=== PATIENT | female | born 1960 | race Caucasian/White ===

== ENCOUNTER → 2016-12-31 | Outpatient (CLI) | payer OTHER ==
--- NOTE | 2016-12-31 13:30 | US ---
EXAMINATION TYPE: US extremity nonvascular ltd RT DATE OF EXAM: 12/31/2016 1:11 PM COMPARISON: NONE CLINICAL HISTORY: M25.561 Pain in right knee posteriorly. Pain at right popliteal fossa TECHNOLOGIST IMPRESSION: No popliteal fossa cyst is seen. Patent right Popliteal Vein and Popliteal ARtery. No other mass is seen in popliteal fossa. Scanning of popliteal region shows no suspicious curvilinear fluid collection to suggest popliteal or Flores's cyst. Satisfactory flow is seen in popliteal artery and vein at this level. IMPRESSION: Unremarkable study as noted above. No suspicious finding is evident.
== END | disposition home or self-care (01) ==
LOC: RADUSWWP 12:53
PROVIDERS: ATTEND Family Medicine
DX: M25.561 Pain in right knee (principal)

== ENCOUNTER 2017-03-26 12:52 | Emergency (ER) | payer OTHER ==
[2017-03-26] MEDS ORDERED: HYDROmorphone 1 MG/ML 1 ML SYRINGE IVP STA (14:03)
[2017-03-26] MEDS ORDERED: SODIUM CHLORIDE 0.9% 1,000 ML IV ONE (14:03)
[2017-03-26] MEDS ORDERED: KETOROLAC 30 MG/ML 1 ML VIAL IVP STA (14:04)
--- NOTE | 2017-03-26 14:14 | ED ---
Abdominal Pain HPI - General Chief Complaint: Abdominal Pain Stated Complaint: R side pain Time Seen by Provider: 03/26/17 13:58 Source: patient Mode of arrival: ambulatory Limitations: no limitations - History of Present Illness Initial Comments: This is a 56-year-old female with a history of chronic back pain and neck pain presents emergency department for right flank pain. She states that it started suddenly this morning and woke her from sleep. She states that she has some associated nausea and vomiting and had one episode of diarrhea as well. She states it does radiate into her abdomen in the right lower area. No fevers or chills. No dysuria or hematuria. She states she's never had any pain in this area previously. No other complaints. - Related Data Home Medications Medication Instructions Recorded Confirmed ALPRAZolam [ALPRAZolam] 1 mg PO QID PRN 03/26/17 03/26/17 Amitriptyline HCl [Amitriptyline 150 mg PO HS 03/26/17 03/26/17 HCl] Butalb/APAP/Caff 50-325-40Mg 1 tab PO Q4H PRN 03/26/17 03/26/17 [Fioricet 50-325-40] Hydrocodone/Acetaminophen [[place] 1 tab PO QID PRN 03/26/17 03/26/17 10-325] Magnesium Oxide [Magnesium] 500 mg PO HS 03/26/17 03/26/17 Propranolol HCl [Inderal LA] 120 mg PO HS 03/26/17 03/26/17 Previous Rx's Medication Instructions Recorded Ciprofloxacin HCl [Cipro] 500 mg PO Q12HR #14 tablet 03/26/17 metroNIDAZOLE [Flagyl] 500 mg PO Q8HR #21 tab 03/26/17 Allergies Allergy/AdvReac Type Severity Reaction Status Date / Time morphine AdvReac Nausea & Verified 03/26/17 14:35 Vomiting Review of Systems ROS Statement: Those systems with pertinent positive or pertinent negative responses have been documented in the HPI. ROS Other: All systems not noted in ROS Statement are negative. Past Medical History Additional Past Medical History / Comment(s): chest lump History of Any Multi-Drug Resistant Organisms: None Reported Past Surgical History: Hysterectomy, Orthopedic Surgery, Tubal Ligation Additional Past Surgical History / Comment(s): neck Past Psychological History: No Psychological Hx Reported Smoking Status: Former smoker Past Alcohol Use History: None Reported Past Drug Use History: None Reported General Exam - General Exam Comments Initial Comments: Constitutional: Awake alert Appears comfortable Head: Normocephalic atraumatic Eyes: no conjunctival injection No scleral icterus EOMI Neck: No JVD Supple Heart: Regular rate rhythm normal S1-S2 no murmurs Lungs: Clear to auscultation bilaterally No wheezing No rales Abdomen: Soft nondistended mild tenderness in the right lower quadrant and suprapubic region, no CVA tenderness Extremities: Non edematous DP pulses intact Radial pulses intact Neuro: A&Ox3 No focal neurologic deficits Psych: Appropriate mood and affect Limitations: no limitations Course Vital Signs 03/26/17 03/26/17 12:59 16:00 Temperature 98.4 F 98.2 F Pulse Rate 93 62 Respiratory 20 16 Rate Blood Pressure 131/84 141/66 O2 Sat by Pulse 97 100 Oximetry Medical Decision Making - Medical Decision Making This 56-year-old female who presents emergency room for right flank pain. Computed tomography scan showed evidence for colitis. No evidence for kidney stone. No other intra-abdominal process. The patient is improved after medications. She did have a small amount of blood in her urine and the possibility of a recently passed stone is possible. I did start her on Cipro and Flagyl and told to follow-up with her primary doctor. She can return if she has worsening symptoms or questions were answered. - Lab Data Result diagrams: 03/26/17 14:20 03/26/17 14:20 Lab Results 03/26/17 03/26/17 03/26/17 Range/Units 14:20 14:20 15:36 WBC 8.7 (3.8-10.6) k/uL RBC 4.20 (3.80-5.40) m/uL Hgb 13.5 (11.4-16.0) gm/dL Hct 40.9 (34.0-46.0) % MCV 97.4 (80.0-100.0) fL MCH 32.1 (25.0-35.0) pg MCHC 33.0 (31.0-37.0) g/dL RDW 12.9 (11.5-15.5) % Plt Count 331 (150-450) k/uL Neutrophils % 75 % Lymphocytes % 19 % Monocytes % 3 % Eosinophils % 1 % Basophils % 1 % Neutrophils # 6.5 (1.3-7.7) k/uL Lymphocytes # 1.7 (1.0-4.8) k/uL Monocytes # 0.3 (0-1.0) k/uL Eosinophils # 0.0 (0-0.7) k/uL Basophils # 0.1 (0-0.2) k/uL Sodium 141 (137-145) mmol/L Potassium 4.6 (3.5-5.1) mmol/L Chloride 108 H (98-107) mmol/L Carbon Dioxide 25 (22-30) mmol/L Anion Gap 8 mmol/L BUN 16 (7-17) mg/dL Creatinine 0.72 (0.52-1.04) mg/dL Est GFR (MDRD) Af Amer >60 (>60 ml/min/1.73 sqM) Est GFR (MDRD) Non-Af >60 (>60 ml/min/1.73 sqM) Glucose 97 (74-99) mg/dL Calcium 9.8 (8.4-10.2) mg/dL Total Bilirubin 0.6 (0.2-1.3) mg/dL AST 32 (14-36) U/L ALT 39 (9-52) U/L Alkaline Phosphatase 103 (38-126) U/L Total Protein 7.3 (6.3-8.2) g/dL Albumin 4.5 (3.5-5.0) g/dL Amylase 60 (30-110) U/L Lipase 43 (23-300) U/L Urine Color Yellow Urine Appearance Clear (Clear) Urine pH 7.0 (5.0-8.0) Ur Specific [place] 1.010 (1.001-1.035) Urine Protein Negative (Negative) Urine Glucose (UA) Negative (Negative) Urine Ketones 1+ H (Negative) Urine Blood Small H (Negative) Urine Nitrite Negative (Negative) Urine Bilirubin Negative (Negative) Urine Urobilinogen <2.0 (<2.0) mg/dL Ur Leukocyte Esterase Negative (Negative) Urine RBC 16 H (0-5) /hpf Urine WBC <1 (0-5) /hpf Ur Squamous Epith Cells <1 (0-4) /hpf Urine Bacteria Rare H (None) /hpf Urine Mucus Rare H (None) /hpf Disposition Clinical Impression: Colitis Disposition: HOME SELF-CARE Condition: Stable Instructions: Colitis (ED) Prescriptions: Ciprofloxacin HCl [Cipro] 500 mg PO Q12HR #14 tablet metroNIDAZOLE [Flagyl] 500 mg PO Q8HR #21 tab Referrals: Kiersten Mcmillan III, MD [Primary Care Provider] - 1-2 days
[2017-03-26 14:57] LABS: Basophils # (A) 0.1 k/uL (0-0.2); Basophils % (A) 1 %; Eosinophils % (A) 1 %; HCT 40.9 % (34.0-46.0); HDW 1.96; HGB 13.5 gm/dL (11.4-16.0); Luc # (Auto) 0.14; Luc % (Auto) 2; Lymphocytes # (A) 1.7 k/uL (1.0-4.8); Lymphocytes % (A) 19 %; MCH 32.1 pg (25.0-35.0); MCV 97.4 fL (80.0-100.0); Mean Platelet Volume 7.2; Monocytes # (A) 0.3 k/uL (0-1.0); Monocytes % (A) 3 %; Neutrophils # (A) 6.5 k/uL (1.3-7.7); Neutrophils % (A) 75 %; RDW 12.9 % (11.5-15.5); WBC 8.7 k/uL (3.8-10.6); WBC (Perox) 8.67
[2017-03-26 15:11] LABS: ALT 39 U/L (9-52); AST 32 U/L (14-36); Alkaline Phosphatase 103 U/L (38-126); Amylase 60 U/L (30-110); Anion Gap 8 mmol/L; Blood Urea Nitrogen 16 mg/dL (7-17); Calcium 9.8 mg/dL (8.4-10.2); Carbon Dioxide 25 mmol/L (22-30); Chloride 108 mmol/L (98-107); Glucose 97 mg/dL (74-99); Non-African American GFR(MDRD) >60 (>60 ml/min/1.73 sqM); Potassium 4.6 mmol/L (3.5-5.1); Sodium 141 mmol/L (137-145); Total Bilirubin 0.6 mg/dL (0.2-1.3); Total Protein 7.3 g/dL (6.3-8.2)
--- NOTE | 2017-03-26 15:15 | CT ---
EXAMINATION TYPE: CT abdomen pelvis wo con DATE OF EXAM: 03/26/2017 COMPARISON: NONE HISTORY: Right sided flank pain CT DLP: 721 mGycm Automated exposure control for dose reduction was used. TECHNIQUE: Helical acquisition of images from the lung bases through the pelvis. FINDINGS: Lack of intravenous contrast could compromise sensitivity. LUNG BASES: Basilar atelectatic changes are present bilaterally. AORTA: No significant abnormality is appreciated. LIVER/GB: Incidental 5 mm hypodensity centrally within the posterior right lobe is of questionable cl inical significance. Gallbladder is within normal limits. PANCREAS: Suspect there may be a large posterior duodenal diverticulum extending posterior to the choudhury creas. SPLEEN: No significant abnormality is seen. ADRENALS: No significant abnormality is seen. KIDNEYS: Possible cortical cyst associated with lower pole the right kidney. Indeterminate hypodensit ies present. No nephrolithiasis on the right, no ureteral calcification present bilaterally. Punctate nonobstructive calculi are associated with the left kidney, there are at least 3 punctate calcificat ions present towards the upper pole REPRODUCTIVE ORGANS: No uterus is identified. Suspect ovaries present in the pelvis. URINARY BLADDER: No significant abnormality is seen. BOWEL: The appendix is normal. Difficult to exclude some colonic wall thickening. FREE AIR: No Free Air is visible. ASCITES: None visible. PELVIC ADENOPATHY: None visualized. RETROPERITONEAL ADENOPATHY: No Retroperitoneal Adenopathy visible. OSSEOUS STRUCTURES: Degenerative disc changes are present in the visualized spine. There is a spinal curvature. IMPRESSION: LEFT-SIDED NEPHROLITHIASIS IS NONOBSTRUCTIVE. NONCONTRAST EXAM. POSSIBLE LARGE DUODENAL DIVERTICULUM. DIFFICULT TO EXCLUDE AN UNDERLYING COLITIS. FOLLOW-UP INDICATED. POSTOP CHANGES. ADDITIONAL FINDI NGS ABOVE.
[2017-03-26 15:58] LABS: Appearance,Urine Clear (Clear); Bacteria,Urine Rare /hpf; Bilirubin,Urine Negative (Negative); Glucose,Urine (UA) Negative (Negative); Ketones,Urine 1+ (Negative); Leukocyte Esterase,Urine Negative (Negative); Mucus,Urine Rare /hpf; Nitrite,Urine Negative (Negative); Particle Count 1362; Protein,Urine Negative (Negative); RBC,Urine 16 /hpf (0-5); Squamous Epithelial Cell,Urine <1 /hpf (0-4); UA Billing (MACRO vs. MICRO) MICRO; Urobilinogen,Urine <2.0 mg/dL (<2.0); WBC,Urine <1 /hpf (0-5)
[2017-03-26 16:01] VITALS: BP 141/66; PULSE 62; RESP 16; TEMP 98.2
== END 2017-03-26 16:17 | disposition home or self-care (01) ==
LOC: EC 12:52
DX: K52.9 Noninfective gastroenteritis and colitis, unspecified (principal); R31.9 Hematuria, unspecified; Z87.891 Personal history of nicotine dependence; Z79.899 Other long term (current) drug therapy; Z88.5 Allergy status to narcotic agent
CPT/HCPCS: 36415; 80053; 82150; 83690; 85025; 81001; 74176; 99284; 96374; 96375; 96361; J1885; J1170

== ENCOUNTER → 2017-06-13 | Outpatient (CLI) | payer OTHER ==
--- NOTE | 2017-06-13 11:08 | XR ---
EXAMINATION TYPE: XR abdomen 1V DATE OF EXAM: 06/13/2017 COMPARISON: NONE HISTORY: Pain TECHNIQUE: Single supine KUB image of the abdomen is obtained FINDINGS: Small bowel demonstrates no evidence for dilatation or air fluid levels. Gas and fecal material is seen in non-distended colon. No convincing evidence for pneumoperitoneum. No unusual calcifications. Phlebolith left hemipelvis. The lung bases are clear. The osseous structures are intact. IMPRESSION: 1. Overall nonobstructive bowel gas pattern.
== END ==
LOC: RADXRMAIN 10:36
PROVIDERS: ATTEND Family Medicine
DX: N20.0 Calculus of kidney (principal)
CPT/HCPCS: 74000

== ENCOUNTER → 2017-09-10 | Outpatient (CLI) | payer OTHER ==
--- NOTE | 2017-09-10 16:22 | XR ---
Abdomen HISTORY: Pain, kidney calculus Frontal view of the abdomen submitted on 2 images and correlated to prior abdomen 06/13/2017, CT abdom en pelvis 03/26/2017 Calcification is overlying the right kidney measuring 14 mm. Large amount of retained fecal debris is noted. Probable vascular calcifications within the pelvis. Degenerative disc changes in the visualiz ed spine. Lung bases are clear. No obstruction or pneumoperitoneum. Distortion of the right ilium is stable. IMPRESSION: Right-sided nephrolithiasis.
== END | disposition home or self-care (01) ==
LOC: RADXRMAIN 14:23
PROVIDERS: ATTEND Urology
DX: N20.0 Calculus of kidney (principal)
CPT/HCPCS: 74000

== ENCOUNTER → 2017-09-17 | Outpatient (CLI) | payer OTHER ==
[2017-09-17 17:41] LABS: Basophils # (A) 0.1 k/uL (0-0.2); Basophils % (A) 2 %; CH 31.2; CHCM 32.1; Eosinophils # (A) 0.4 k/uL (0-0.7); Eosinophils % (A) 5 %; HCT 39.6 % (34.0-46.0); HGB 12.8 gm/dL (11.4-16.0); Luc # (Auto) 0.13; Luc % (Auto) 2; Lymphocytes # (A) 3.3 k/uL (1.0-4.8); Lymphocytes % (A) 41 %; MCH 31.4 pg (25.0-35.0); MCHC 32.3 g/dL (31.0-37.0); MCV 97.4 fL (80.0-100.0); Mean Platelet Volume 7.3; Monocytes # (A) 0.5 k/uL (0-1.0); Monocytes % (A) 7 %; Neutrophils # (A) 3.6 k/uL (1.3-7.7); Neutrophils % (A) 44 %; RBC 4.06 m/uL (3.80-5.40); RDW 13.5 % (11.5-15.5); WBC 8.1 k/uL (3.8-10.6); WBC (Perox) 8.14
[2017-09-17 17:45] LABS: Anion Gap 7 mmol/L; Appearance,Urine Clear (Clear); Bacteria,Urine Rare /hpf; Bilirubin,Urine Negative (Negative); Blood Urea Nitrogen 20 mg/dL (7-17); Carbon Dioxide 26 mmol/L (22-30); Chloride 105 mmol/L (98-107); Glucose,Urine (UA) Negative (Negative); Ketones,Urine Negative (Negative); Leukocyte Esterase,Urine Large (Negative); Mucus,Urine Rare /hpf; Nitrite,Urine Negative (Negative); Non-African American GFR(MDRD) 58 (>60 ml/min/1.73 sqM); Particle Count 3058; Potassium 4.4 mmol/L (3.5-5.1); Protein,Urine Negative (Negative); RBC,Urine 5 /hpf (0-5); Sodium 138 mmol/L (137-145); Specific Gravity,Urine 1.011 (1.001-1.035); Squamous Epithelial Cell,Urine 3 /hpf (0-4); UA Billing (MACRO vs. MICRO) MICRO; Urobilinogen,Urine <2.0 mg/dL (<2.0); WBC,Urine 26 /hpf (0-5)
== END | disposition home or self-care (01) ==
LOC: LABWHC1 17:05
PROVIDERS: ATTEND Urology
DX: N20.0 Calculus of kidney (principal)
CPT/HCPCS: 36415; 80051; 81001; 82565; 84520; 85025; 87086

== ENCOUNTER → 2017-12-03 | Outpatient (CLI) | payer OTHER ==
--- NOTE | 2017-12-03 12:43 | XR ---
EXAMINATION TYPE: XR abdomen 1V DATE OF EXAM: 12/03/2017 CLINICAL DATA: 57-year-old female right ureteral stone, pain right lower pelvis with hematuria, [facility] COMPARISON: 09/10/[address] 03/26/2017 FINDINGS: Supine imaging is limited for assessment of free intraperitoneal air. Overall nonobstructive bowel gas pattern though there is moderate stool burden which may reflect cons tipation. Bowel content largely obscures the renal shadows. Stable phlebolith in the left hemipelvis. Rounded density in the right hemipelvis has slightly shifte d position but remains suggestive of a phlebolith. IMPRESSION: 1. Moderate stool burden suggests constipation. Clinically correlate. 2. Bowel content partially obscures the renal shadows. 3. A round calcification on each side of the pelvis compatible with a phlebolith on the left and most likely a phlebolith on the right.
== END | disposition home or self-care (01) ==
LOC: RADXRMAIN 11:30
PROVIDERS: ATTEND Urology
DX: R19.09 Other intra-abdominal and pelvic swelling, mass and lump (principal)
CPT/HCPCS: 74018

== ENCOUNTER → 2017-12-23 | Outpatient (CLI) | payer OTHER ==
--- NOTE | 2017-12-23 17:02 | CT ---
EXAMINATION TYPE: CT abdomen pelvis wo con DATE OF EXAM: 12/23/2017 COMPARISON: Prior CT 03/26/2017 HISTORY: Patient complains of right flank pain. Microscopic hematuria. CT DLP: 511 mGycm Automated exposure control for dose reduction was used. TECHNIQUE: Helical acquisition of images from the lung bases through the pelvis. FINDINGS: Lack of contrast compromises the exam sensitivity LUNG BASES: Linear bands within the lungs are noted as on prior and likely represents scar, no pleura l or pericardial effusion AORTA: Atheromatous changes are present within the aorta.. LIVER/GB: No significant abnormality is appreciated. PANCREAS: No significant abnormality is seen. SPLEEN: No significant abnormality is seen. ADRENALS: No significant abnormality is seen. KIDNEYS: Punctate calcifications are present within the kidney on the left which could represent nono bstructive calculi, no ureteral calcification or hydronephrosis bilaterally. REPRODUCTIVE ORGANS: Not seen. URINARY BLADDER: No significant abnormality is seen. BOWEL: No significant abnormality is seen. The appendix is normal. There is a small hiatal hernia. FREE AIR: No Free Air is visible. ASCITES: None visible. PELVIC ADENOPATHY: None visualized. RETROPERITONEAL ADENOPATHY: No Retroperitoneal Adenopathy visible. OSSEOUS STRUCTURES: Degenerative disc changes present within the spine. IMPRESSION: NONCONTRAST EXAM. NONOBSTRUCTIVE LEFT NEPHROLITHIASIS. Additional findings above.
== END | disposition home or self-care (01) ==
LOC: RADCTMAIN 16:32
PROVIDERS: ATTEND Urology
DX: N20.0 Calculus of kidney (principal); I70.0 Atherosclerosis of aorta; K44.9 Diaphragmatic hernia without obstruction or gangrene; M54.5 Low back pain
CPT/HCPCS: 74176

== ENCOUNTER → 2018-06-10 | Outpatient (CLI) | payer OTHER ==
--- NOTE | 2018-06-11 08:26 | MR ---
EXAMINATION TYPE: MR lumbar spine wo con DATE OF EXAM: 06/10/2018 COMPARISON: CT abdomen and pelvis December 23, 2017. HISTORY: Lumbago per order. TECHNIQUE: Multiplanar, multisequence imaging of the lumbar spine is performed without IV contrast. FINDINGS: Sagittal images of the lumbar spine show vertebral body heights and alignment to remain sat isfactory. Multilevel disc desiccation is present. There is fairly moderate disc space narrowing L4-L 5 level with heterogeneous Modic type II degenerative changes anteriorly and mild to moderate anterio r spurring. Small posterior disc herniation is seen at this level on sagittal images. The conus medul ana is slightly low in position ending L1-L2 disc space level. No abnormal signal is present. Axial images show the T12-L1, L1-L2, and L2-L3 levels to appear within normal limits. Axial images at the L3-L4 level show mild broad disc bulge and mild facet degenerative changes bilate rally but spinal canal is preserved and bilateral neural foramina are patent. Axial images at the L4-L5 level show more moderate broad disc bulge and mild to moderate facet degene rative changes bilaterally. There is mild effacement of the anterior thecal sac and mild bilateral an terior inferior neural foraminal narrowing. Axial images at the L5-S1 level mild facet degenerative changes bilaterally. There is tiny central di sc protrusion seen but spinal canal is preserved and bilateral neural foramina are patent. IMPRESSION: Some multilevel degenerative changes mid to lower lumbar spine most prominent at L4-L5 le mily as detailed above.
--- NOTE | 2018-06-11 08:50 | MR ---
EXAMINATION TYPE: MR brain wo cspine wo/w DATE OF EXAM: 06/10/2018 COMPARISON: NONE HISTORY: Migraine headaches and cervicalgia per order. TECHNIQUE: Multiplanar, multisequence imaging of the brain and brainstem is performed without IV cont rast. Multiplanar, multisequence imaging of cervical spine is performed without and with IV contrast. Patient is injected with 7.5 cc of gadavist. FINDINGS: BRAIN: Diffusion weighted images demonstrate no evidence of a recent infarct or other diffusion abnormality. There is no worrisome extra-axial fluid collection. There is mild ventricular and sulcal prominence c onsistent with mild diffuse age-related cerebral atrophy. There is occasional punctate focus of T2 hy perintensity, account less than 3 scattered lesions for reference posterior right frontal 2 mm lesion axial image 20. Midline structures demonstrate normal morphology. The craniocervical junction appears within normal limits. Normal vascular flow voids are present. The globes are slightly distorted by artifact. Visual ized paranasal sinuses are grossly clear. No suspicious opacification mastoid air cells is seen. IMPRESSION: Mild diffuse age-related cerebral atrophy and minimal white matter changes. C-SPINE: FINDINGS: Sagittal images of the cervical spine show the craniocervical junction to appear within nor mal limits. The cervical and upper thoracic spinal cord is normal in course, caliber, and signal. Th ere is artifact from surgical change beginning C3 level extending through C7 level. Satisfactory alig nment is present. The vertebral body and intravertebral disk heights are normal above and below surgi cortney levels. No suspicious posterior disc herniations are seen on sagittal images. The bone marrow sig nal intensity is within normal limits. No suspicious postcontrast enhancement is seen. Axial images show the C2-C3 level to appear within normal limits. Axial images at C3-C4 and C4-C5 levels show artifact from surgical hardware otherwise are felt within normal limits. There is tortuous course to the left vertebral artery incidentally seen at these leve ls. Axial images at C5-C6 level show artifact from surgical change, there is mild to moderate right great er than left bilateral neural foraminal narrowing due to bony foraminal protrusions axial image 27. Axial images at C6-C7 level show more prominent artifact from surgical hardware with possible mild to moderate bilateral neural foraminal narrowing near axial image 23 but this may be exaggerated by blo oming artifact. Spinal canal is grossly preserved. Axial images at C7-T1 level show artifact from surgical hardware otherwise are felt within normal lewis its near axial image 16. Axial images at T1-T2 level are unremarkable near axial image 7. IMPRESSION: Postsurgical change C3-C7 level with satisfactory alignment. There is mild to moderate ri ght greater than left bilateral neural foraminal narrowing C5-C6 level and possible additional bilate ral neural foraminal narrowing C6-C7 level though this may be exaggerated by blooming artifact.
== END | disposition home or self-care (01) ==
LOC: RADMRIMAIN 18:32
PROVIDERS: ATTEND Family Medicine
DX: M99.71 Connective tissue and disc stenosis of intervertebral foramina of cervical region (principal); G31.1 Senile degeneration of brain, not elsewhere classified; M47.816 Spondylosis without myelopathy or radiculopathy, lumbar region; R90.82 White matter disease, unspecified; Z98.890 Other specified postprocedural states
CPT/HCPCS: 82565; 70551; 72148; 72156; 36415; A9581

== ENCOUNTER → 2018-07-29 | Outpatient (CLI) | payer OTHER ==
[2018-07-29 13:00] VITALS: BP 135/85; PULSE 88; RESP 18
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
== END | disposition home or self-care (01) ==
LOC: PNWHC3 12:26
PROVIDERS: ATTEND Specialist
DX: M47.816 Spondylosis without myelopathy or radiculopathy, lumbar region (principal); M46.96 Unspecified inflammatory spondylopathy, lumbar region; M46.1 Sacroiliitis, not elsewhere classified; M70.61 Trochanteric bursitis, right hip; Z87.891 Personal history of nicotine dependence; Z79.899 Other long term (current) drug therapy; Z79.891 Long term (current) use of opiate analgesic; Z79.82 Long term (current) use of aspirin; Z79.1 Long term (current) use of non-steroidal anti-inflammatories (NSAID); Z91.09 Other allergy status, other than to drugs and biological substances; Z88.5 Allergy status to narcotic agent
CPT/HCPCS: 99211

== ENCOUNTER 2018-08-13 07:55 | Day surgery (SDC) | payer OTHER ==
[2018-08-07 09:31] VITALS: BMI 25.6
[~2018-08-13 07:55] MED LIST: SODIUM CHLORIDE 0.9% 500 ML 500 ML IV SCH
[2018-08-13 09:00] VITALS: RESP 16; TEMP 97.6
--- NOTE | 2018-08-13 10:13 | P.PCN ---
Date of Procedure: 08/13/18 Preoperative Diagnosis: Lumbar spondylosis without myelopathy Right greater trochanter bursitis Postoperative Diagnosis: Same as above Procedure(s) Performed: 1-bilateral lumbar medial branch block under fluoroscopic guidance for levels L3 4, L4-L5, and L5-S1 Right greater trochanter bursa steroid injection under fluoroscopic guidance Anesthesia: other (local with lidocaine 1% and IV moderate conscious sedation with 2 mg of Versed) Surgeon: Bertha Chau Pathology: none sent Condition: stable Disposition: PACU Description of Procedure: PREOPERATIVE DIAGNOSIS : 1- Lumbar spondylosis with Facet Arthropathy without myelopathy . 2- Lumber degenerative disc disease POSTOPERATIVE DIAGNOSIS: 1- Lumbar spondylosis with Facet Arthropathy without myelopathy . 2- Lumber degenerative disc disease PROCEDURE: Diagnostic bilateral L3 -4 , L4 -5 , and L5-S1 medial branch block under fluoroscopy ANESTHESIA: Local with 1% lidocaine; IV moderate conscious sedation with Versed 2 mg . EBL: Negligible COMPLICATION: None. PROCEDURE INDICATION: Chronic low back pain secondary to Facet arthropathy unresponsive to conservative treatment. PROCEDURE DESCRIPTION: the patient was seen and identified in the preop holding area , risks and benefits and possible complications of the procedure and alternatives were discussed with the patient, and the patient agreed to proceed with the procedure and signed the consent. IV was started and vital signs monitored during the procedure and fluoroscopy was used to maximize the benefit and accuracy of the needle placement, sedation was given to decrease patient anxiety, patient was taken to the procedure room and placed in prone position vital signs monitored. The patient was brought into the procedure room and placed in prone position. Skin was prepped with Chloraprep and draped in a sterile manner. Lidocaine 1 % was used to numb the skin up at the target points that were chosen as follows : at the L5-S1 level which corresponds to the dorsal ramus of L5 the target points were at the superior medial aspect of the sacral ala on each side of the spine on the AP view of fluoroscopy, and for the L3 and L4 medial branches the target points were the connection between the transverse process and the superior to go process of L3, L4 and L5 respectively on the oblique views of fluoroscopy. I used 22-gauge 3-1/2 inch Quincke spinal needles for this procedure and after contacting bone at the target points mentioned above I injected 1 mL of a mixture of Kenalog 40 mg +5 MLS of Marcaine 0.5% PF . Patient tolerated procedure well. At the end of the procedure the needles removed and a bandage applied after the skin was cleaned the cleaning solution. I then turned my attention into doing the right greater trochanter bursa steroid injection under fluoroscopic guidance. After cleaning the skin with DuraPrep. The can't percent to numb the skin up at the level of the greater trochanter on the right side using fluoroscopy. I then used 22-gauge 3-1/2 inch Quincke spinal needle to go through the skin and to contact bone and then greater trochanter and injected 5 MLS of Ropivacaine0.5% +40 mg of Kenalog. Patient tolerated procedure well. patient was then taken to the recovery room in stable condition and monitored in the recovery room for 20-30 minutes and discharged home in stable condition after discharge criteria met .
--- NOTE | 2018-08-13 10:31 | FL ---
EXAMINATION TYPE: FL guided pain mgmt statistic DATE OF EXAM: 08/13/2018 HISTORY: Pain ARVIND LUM FACET BLOCK STEROID INJ 11 SECS FLUORO AND 3 PAPER IMAGES
[2018-08-13 10:44] VITALS: BP 110/58; PULSE 64
== END 2018-08-13 10:50 | disposition home or self-care (01) ==
LOC: ORPAIN 07:55
PROVIDERS: ATTEND Anesthesiology
DX: G89.29 Other chronic pain (principal); M51.36 Other intervertebral disc degeneration, lumbar region; Z86.73 Personal history of transient ischemic attack (TIA), and cerebral infarction without residual deficits; K21.9 Gastro-esophageal reflux disease without esophagitis; M19.90 Unspecified osteoarthritis, unspecified site; Z98.1 Arthrodesis status; Z87.891 Personal history of nicotine dependence; Z79.1 Long term (current) use of non-steroidal anti-inflammatories (NSAID); Z79.82 Long term (current) use of aspirin; Z79.899 Other long term (current) drug therapy; Z91.048 Other nonmedicinal substance allergy status; Z88.5 Allergy status to narcotic agent; Z88.8 Allergy status to other drugs, medicaments and biological substances; M47.816 Spondylosis without myelopathy or radiculopathy, lumbar region; M70.61 Trochanteric bursitis, right hip; M46.1 Sacroiliitis, not elsewhere classified
CPT/HCPCS: 20610; 64493; 64494; 64495; J2250; J3301; 99152

== ENCOUNTER → 2019-02-18 | Outpatient (CLI) | payer OTHER ==
--- NOTE | 2019-02-18 10:20 | MM ---
Reason for exam: clinical finding. Last mammogram was performed 3 years ago. History: Patient is postmenopausal. Family history of breast cancer in 3 cousins. Benign excisional biopsy, 2018. Took hormonal contraceptives for 1 year. Indicated problem(s): pain in both breasts. Palpable abnormality and lump or thickening in the left breast. Physical Findings: Nurse Summary: 0.5cm nodule in the left breast at 1-2 o'clock (nurse cw). MG Diagnostic Mammo w CAD ARVIND Bilateral CC and MLO view(s) were taken. Prior study comparison: February 23, 2016, mammogram. January 31, 2015, mammogram. The breast tissue is heterogeneously dense. This may lower the sensitivity of mammography. Benign appearing bilateral calcifications. Left biopsy marker. These results were verbally communicated with the patient and result sheet given to the patient on 02/18/19. ASSESSMENT: Benign, BI-RAD 2 RECOMMENDATION: Routine screening mammogram of both breasts in 1 year.
--- NOTE | 2019-02-18 10:21 | USB ---
Reason for exam: clinical finding. History: Patient is postmenopausal. Family history of breast cancer in 3 cousins. Benign excisional biopsy, 2018. Took hormonal contraceptives for 1 year. Indicated problem(s): pain in both breasts. Palpable abnormality and lump or thickening in the left breast. US Breast LT Left complete breast ultrasound includes all four quadrants, the retroareolar region and axilla. Finding demonstrates no cystic or solid lesion seen. No suspicious abnormality. These results were verbally communicated with the patient and result sheet given to the patient on 02/18/19. ASSESSMENT: Negative, BI-RAD 1 RECOMMENDATION: Routine screening mammogram of both breasts in 1 year.
== END | disposition home or self-care (01) ==
LOC: RADUSWWP 08:39
PROVIDERS: ATTEND Family Medicine
DX: R92.8 Other abnormal and inconclusive findings on diagnostic imaging of breast (principal); N64.4 Mastodynia; N63.21 Unspecified lump in the left breast, upper outer quadrant
CPT/HCPCS: 77066

== ENCOUNTER → 2019-11-29 | Outpatient (CLI) | payer OTHER ==
--- NOTE | 2019-11-29 08:36 | MR ---
EXAMINATION TYPE: MR cervical spine wo/w con DATE OF EXAM: 11/29/2019 COMPARISON: Prior cervical spine MRI 06/10/2018, plain film 10/29/2010 HISTORY: Neck pain TECHNIQUE: Multiplanar, multisequence images of the cervical spine were acquired utilizing 7.5 mL intravenous Ga davist gadolinium contrast. Diffusion weighted imaging was performed. C2-C3: No evidence for degenerative disc disease. No disc bulge/herniation or protrusion. No Canal stenosis. Foramina are patent bilaterally. C3-C4: Disc space is not identified. Intervertebral spacing block placed remotely shows reminiscent a ppearance. No foraminal encroachment. C4-C5: Disc space is obliterated. No foraminal encroachment. C5-C6: No evident disc space. No foraminal protrusion. C6-C7: Uncovertebral joint hypertrophy results in some foraminal encroachment right greater than left , findings similar to prior exam. No evident disc herniation. There is some mild posterior extension of disc complex causing minimal anterior aspect of the thecal sac. C7-T1: No evidence for degenerative disc disease. No disc bulge/herniation or protrusion. No Canal stenosis. Foramina are patent bilaterally. Cervical segments are intact. There is normal alignment. Cervical spinal cord is of normal signal. Craniovertebral junction relationships are within normal limits. Patient is status post anterior cer vical fusion at discectomy at C3-4, C6-7. Old fusion present at C4-5, C5-6 shows an ankylosis appeara nce from remote fusion. There is susceptibility artifact due to patient's metallic hardware. No evide nce spinal stenosis. No abnormal enhancement following contrast administration. IMPRESSION: Postoperative changes. Findings are essentially stable to prior exam.
== END | disposition home or self-care (01) ==
LOC: RADMRIMAIN 06:52
PROVIDERS: ATTEND Orthopaedic Surgery Orthopaedic Surgery of the Spine
DX: M54.12 Radiculopathy, cervical region (principal); M54.2 Cervicalgia; M79.12 Myalgia of auxiliary muscles, head and neck; Z98.1 Arthrodesis status
CPT/HCPCS: 72156; A9585

== ENCOUNTER → 2021-01-17 | Outpatient (CLI) | payer OTHER | END | disposition home or self-care (01) | LOC: LABWHC1 15:27 | PROVIDERS: ATTEND Family Medicine | DX: Z20.822 Contact with and (suspected) exposure to COVID-19 (principal) | CPT/HCPCS: U0003; C9803 ==

== ENCOUNTER 2021-06-20 11:22 | Emergency (ER) | payer OTHER ==
[2021-06-20 11:30] VITALS: RESP 18; TEMP 98.1
[2021-06-20] MEDS ORDERED: PANTOPRAZOLE 40 MG/10 ML VIAL IVP STA (11:56)
--- NOTE | 2021-06-20 12:04 | ED ---
Abdominal Pain HPI - General Chief Complaint: Abdominal Pain Stated Complaint: abd pain Time Seen by Provider: 06/20/21 11:30 Source: patient, RN notes reviewed Mode of arrival: ambulatory Limitations: no limitations - History of Present Illness Initial Comments: This a 61-year-old female presents emergency Department chief complaint of severe abdominal pain. Patient states she's been having worsening abdominal pain she has seen Dr. begum in the past in which she had an EGD was found to have some she'll her stomach she states she's not exactly sure but she was instructed not to take any NSAIDs. Patient states she's been taking omeprazole but recently she started having normal stools, had emesis that included dark blood. No chest pain or shortness breath she complains of diffuse abdominal pain. No dysuria no hematuria no blood thinners noted. - Related Data Home Medications Medication Instructions Recorded Confirmed Amitriptyline HCl 150 mg PO HS 03/26/17 06/20/21 Butalb/APAP/Caff 50-325-40Mg 1 tab PO Q6HR PRN 03/26/17 06/20/21 [Fioricet 50-325-40] Hydrocodone/Acetaminophen [[place] 1 tab PO QID PRN 03/26/17 06/20/21 10-325] Cyanocobalamin (Vitamin B-12) 1,000 mcg PO DAILY 06/20/21 06/20/21 [Vitamin B-12] Ergocalciferol (Vitamin D2) 1,250 mcg PO Q28D 06/20/21 06/20/21 [Drisdol (50,000 Iu)] Lansoprazole [Prevacid] 15 mg PO DAILY 06/20/21 06/20/21 Magnesium Oxide [Kam[place]] 500 mg PO DAILY 06/20/21 06/20/21 Ondansetron [Zofran] 4 mg PO Q12HR PRN 06/20/21 06/20/21 Propranolol HCl [Propranolol HCl 60 mg PO HS 06/20/21 06/20/21 ER] busPIRone HCL [Buspar] 7.5 mg PO BID 06/20/21 06/20/21 hydroCHLOROthiazide 25 mg PO DAILY 06/20/21 06/20/21 Previous Rx's Medication Instructions Recorded Pantoprazole [Protonix] 40 mg PO DAILY #14 tab 09/01/21 Sucralfate [Carafate] 1 gm PO BID #30 tablet 06/20/21 Allergies Allergy/AdvReac Type Severity Reaction Status Date / Time adhesive Allergy Unknown Red Verified 06/20/21 13:05 Irritated Skin. gabapentin Allergy Unknown Itching, Verified 06/20/21 13:05 Rash ondansetron [From Zofran] Allergy Unknown Itching, Verified 06/20/21 13:05 Swelling, Did not feel well morphine AdvReac Nausea & Verified 06/20/21 13:05 Vomiting Review of Systems ROS Statement: Those systems with pertinent positive or pertinent negative responses have been documented in the HPI. ROS Other: All systems not noted in ROS Statement are negative. Past Medical History Past Medical History: CVA/TIA, GERD/Reflux, Osteoarthritis (OA) Additional Past Medical History / Comment(s): STATES MRI SHOWED HX OF TIA X3., HX OF MIGRAINES., HERNIATED AND BULGING DISCS WITH LOWER BACK PAIN RADIATING DOWN RIGHT LEG TO FOOT History of Any Multi-Drug Resistant Organisms: None Reported Past Surgical History: Hysterectomy, Orthopedic Surgery, Tubal Ligation Additional Past Surgical History / Comment(s): 2 CERVICAL FUSIONS, STATES 2 PLATES & 8 SCREWS IN HER NECK, LEFT SHOULDER SURGERY X7 WITH ANCHORS. EGD, COLONOSCOPY Past Anesthesia/Blood Transfusion Reactions: Motion Sickness, Postoperative Mervin sea & Vomiting (PONV) Past Psychological History: Anxiety Smoking Status: Former smoker Past Alcohol Use History: None Reported Past Drug Use History: None Reported - Past Family History Mother Family Medical History: Cancer Additional Family Medical History / Comment(s): LUNG CANCER (PASSED AT 55 YRS OF AGE) Father Family Medical History: Cancer Additional Family Medical History / Comment(s): BRAIN CANCER (PASSED AT 38 YRS OF AGE) Brother(s) Family Medical History: Cancer Additional Family Medical History / Comment(s): BRAIN CANCER (PASSED AT 44 YRS OF AGE) General Exam Limitations: no limitations General appearance: alert, in no apparent distress Head exam: Present: atraumatic, normocephalic, normal inspection Neck exam: Present: normal inspection. Absent: tenderness, meningismus, lymphadenopathy Respiratory exam: Present: normal lung sounds bilaterally. Absent: respiratory distress, wheezes, rales, rhonchi, stridor Cardiovascular Exam: Present: regular rate, normal rhythm, normal heart sounds. Absent: systolic murmur, diastolic murmur, rubs, gallop, clicks GI/Abdominal exam: Present: soft, tenderness, normal bowel sounds. Absent: distended, guarding, rebound, rigid Back exam: Absent: CVA tenderness (R), CVA tenderness (L) Neurological exam: Present: alert Skin exam: Present: warm, dry, intact, normal color. Absent: rash Course Vital Signs 06/20/21 06/20/21 11:24 13:50 Temperature 98.1 F Pulse Rate 79 63 Respiratory 18 18 Rate Blood Pressure 163/104 151/96 O2 Sat by Pulse 94 L 96 Oximetry Medical Decision Making - Medical Decision Making Patient presented for abdominal pain. Labs unremarkable CT is unremarkable. Patient states started after eating some fast food. Patient is given GI cocktail states her some feels greatly improved patient will be discharged on Carafate, MiraLAX, Protonix. Patient will follow-up with her surgeon for repeat EGD - Lab Data Result diagrams: 06/20/21 12:01 06/20/21 12:01 Lab Results 06/20/21 06/20/21 06/20/21 Range/Units 12:01 12:01 12:01 WBC 10.2 (3.8-10.6) k/uL RBC 4.35 (3.80-5.40) m/uL Hgb 14.4 (11.4-16.0) gm/dL Hct 41.9 (34.0-46.0) % MCV 96.3 (80.0-100.0) fL MCH 33.1 (25.0-35.0) pg MCHC 34.4 (31.0-37.0) g/dL RDW 13.1 (11.5-15.5) % Plt Count 465 H (150-450) k/uL MPV 7.6 Neutrophils % 53 % Lymphocytes % 30 % Monocytes % 5 % Eosinophils % 8 % Basophils % 1 % Neutrophils # 5.4 (1.3-7.7) k/uL Lymphocytes # 3.1 (1.0-4.8) k/uL Monocytes # 0.5 (0-1.0) k/uL Eosinophils # 0.8 H (0-0.7) k/uL Basophils # 0.1 (0-0.2) k/uL PT 9.5 (9.0-12.0) sec INR 0.9 (<1.2) APTT 22.8 (22.0-30.0) sec Sodium (137-145) mmol/L Potassium (3.5-5.1) mmol/L Chloride (98-107) mmol/L Carbon Dioxide (22-30) mmol/L Anion Gap mmol/L BUN (7-17) mg/dL Creatinine (0.52-1.04) mg/dL Est GFR (CKD-EPI)AfAm (>60 ml/min/1.73 sqM) Est GFR (CKD-EPI)NonAf (>60 ml/min/1.73 sqM) Glucose (74-99) mg/dL Plasma Lactic Acid Abdias (0.7-2.0) mmol/L Calcium (8.4-10.2) mg/dL Total Bilirubin (0.2-1.3) mg/dL AST (14-36) U/L ALT (4-34) U/L Alkaline Phosphatase (38-126) U/L Total Protein (6.3-8.2) g/dL Albumin (3.5-5.0) g/dL Amylase (30-110) U/L Lipase (23-300) U/L Urine Color Light Yellow Urine Appearance Clear (Clear) Urine pH 7.0 (5.0-8.0) Ur Specific [place] 1.009 (1.001-1.035) Urine Protein Negative (Negative) Urine Glucose (UA) Negative (Negative) Urine Ketones Negative (Negative) Urine Blood Small H (Negative) Urine Nitrite Negative (Negative) Urine Bilirubin Negative (Negative) Urine Urobilinogen <2.0 (<2.0) mg/dL Ur Leukocyte Esterase Negative (Negative) Urine RBC 2 (0-5) /hpf Urine WBC 1 (0-5) /hpf Ur Squamous Epith Cells 2 (0-4) /hpf 06/20/21 06/20/21 Range/Units 12:01 12:01 WBC (3.8-10.6) k/uL RBC (3.80-5.40) m/uL Hgb (11.4-16.0) gm/dL Hct (34.0-46.0) % MCV (80.0-100.0) fL MCH (25.0-35.0) pg MCHC (31.0-37.0) g/dL RDW (11.5-15.5) % Plt Count (150-450) k/uL MPV Neutrophils % % Lymphocytes % % Monocytes % % Eosinophils % % Basophils % % Neutrophils # (1.3-7.7) k/uL Lymphocytes # (1.0-4.8) k/uL Monocytes # (0-1.0) k/uL Eosinophils # (0-0.7) k/uL Basophils # (0-0.2) k/uL PT (9.0-12.0) sec INR (<1.2) APTT (22.0-30.0) sec Sodium 137 (137-145) mmol/L Potassium 4.2 (3.5-5.1) mmol/L Chloride 105 (98-107) mmol/L Carbon Dioxide 23 (22-30) mmol/L Anion Gap 9 mmol/L BUN 18 H (7-17) mg/dL Creatinine 0.90 (0.52-1.04) mg/dL Est GFR (CKD-EPI)AfAm 81 (>60 ml/min/1.73 sqM) Est GFR (CKD-EPI)NonAf 71 (>60 ml/min/1.73 sqM) Glucose 96 (74-99) mg/dL Plasma Lactic Acid Abdias 1.0 (0.7-2.0) mmol/L Calcium 10.1 (8.4-10.2) mg/dL Total Bilirubin 0.4 (0.2-1.3) mg/dL AST 34 (14-36) U/L ALT 20 (4-34) U/L Alkaline Phosphatase 102 (38-126) U/L Total Protein 7.3 (6.3-8.2) g/dL Albumin 4.6 (3.5-5.0) g/dL Amylase 64 (30-110) U/L Lipase 74 (23-300) U/L Urine Color Urine Appearance (Clear) Urine pH (5.0-8.0) Ur Specific [place] (1.001-1.035) Urine Protein (Negative) Urine Glucose (UA) (Negative) Urine Ketones (Negative) Urine Blood (Negative) Urine Nitrite (Negative) Urine Bilirubin (Negative) Urine Urobilinogen (<2.0) mg/dL Ur Leukocyte Esterase (Negative) Urine RBC (0-5) /hpf Urine WBC (0-5) /hpf Ur Squamous Epith Cells (0-4) /hpf Disposition Clinical Impression: Gastritis Disposition: HOME SELF-CARE Condition: Stable Instructions (If sedation given, give patient instructions): Gastritis (ED), Diet for Stomach Ulcers and Gastritis (ED) Additional Instructions: Please return to the Emergency Department if symptoms worsen or any other concerns. Prescriptions: Sucralfate [Carafate] 1 gm PO BID #30 tablet Pantoprazole [Protonix] 40 mg PO DAILY #14 tab Is patient prescribed a controlled substance at d/c from ED?: No Referrals: Kiersten Mcmillan III, MD [Primary Care Provider] - 1-2 days Time of Disposition: 14:06
[2021-06-20 12:19] LABS: Basophils # (A) 0.1 k/uL (0-0.2); Basophils % (A) 1 %; Eosinophils # (A) 0.8 k/uL (0-0.7); Eosinophils % (A) 8 %; HCT 41.9 % (34.0-46.0); HGB 14.4 gm/dL (11.4-16.0); Lymphocytes # (A) 3.1 k/uL (1.0-4.8); Lymphocytes % (A) 30 %; MCH 33.1 pg (25.0-35.0); MCHC 34.4 g/dL (31.0-37.0); MCV 96.3 fL (80.0-100.0); Mean Platelet Volume 7.6; Monocytes # (A) 0.5 k/uL (0-1.0); Monocytes % (A) 5 %; Neutrophils # (A) 5.4 k/uL (1.3-7.7); Neutrophils % (A) 53 %; Platelet Count 465 k/uL (150-450); RBC 4.35 m/uL (3.80-5.40); RDW 13.1 % (11.5-15.5); WBC 10.2 k/uL (3.8-10.6)
[2021-06-20 12:23] LABS: Appearance,Urine Clear (Clear); Bilirubin,Urine Negative (Negative); Blood,Urine Small (Negative); Color,Urine Light Yellow; Glucose,Urine (UA) Negative (Negative); Ketones,Urine Negative (Negative); Leukocyte Esterase,Urine Negative (Negative); Nitrite,Urine Negative (Negative); Protein,Urine Negative (Negative); RBC,Urine 2 /hpf (0-5); Specific Gravity,Urine 1.009 (1.001-1.035); Squamous Epithelial Cell,Urine 2 /hpf (0-4); Urobilinogen,Urine <2.0 mg/dL (<2.0); WBC,Urine 1 /hpf (0-5)
[2021-06-20 12:32] LABS: INR 0.9 (<1.2); Partial Thromboplastin Time 22.8 sec (22.0-30.0); Prothrombin Time 9.5 sec (9.0-12.0)
[2021-06-20 12:35] LABS: Albumin 4.6 g/dL (3.5-5.0); Calcium 10.1 mg/dL (8.4-10.2); Potassium 4.2 mmol/L (3.5-5.1); Total Bilirubin 0.4 mg/dL (0.2-1.3); Total Protein 7.3 g/dL (6.3-8.2)
--- NOTE | 2021-06-20 12:42 | CT ---
EXAMINATION TYPE: CT abdomen pelvis w con DATE OF EXAM: 06/20/2021 COMPARISON: 12/23/2017 INDICATION: mid abd pain, nausea and vomiting for a year, getting worse DLP: 542.8 mGycm, Automated exposure control for dose reduction was used. CONTRAST: 100 mL of Isovue 300. Study performed without Oral Contrast TECHNIQUE: Axial images were obtained from above the diaphragm to the pubic rami in the axial plane a t 5 mm thick sections. Reconstructed images are reviewed on the computer in the coronal plane. FINDINGS: Limited CT sections are obtained the lung bases. The lung bases are clear. CT ABDOMEN: Liver: Normal Spleen: Normal Pancreas: Normal Adrenal glands: The adrenal glands are normal. Gallbladder: Normal Kidneys: No masses are evident. No hydronephrosis is present. No cysts are present. Delayed images were obtained through the kidneys, which remain unremarkable. Aorta: Vascular calcification is within the aorta. Inferior vena cava: Normal. CT PELVIS: Loops of bowel within the abdomen and pelvis are normal. There are loops of bowel which are incom pletely distended or lack oral contrast limiting their evaluation. Appendix: Normal as visualized. Urinary bladder: Normal. Genitourinary structures: Uterus and ovaries are not identified. Osseous structures: No suspicious lytic or sclerotic lesions are evident. IMPRESSIONS: 1. No suspicious changes to account for nausea and vomiting. No changes suspicious for partial obstr uction or inflammatory change is evident
[2021-06-20] MEDS ORDERED: MAG HYDROX/AL HYDROX/SIMETH 30 ML, HYOSCYAMINE ELIXIR 10 ML, LIDOCAINE VISCOUS 2% 10 ML PO STA ×3 (13:19)
[2021-06-20 13:54] VITALS: PULSE 63
[2021-06-20 13:55] VITALS: BP 151/96
== END 2021-06-20 14:21 | disposition home or self-care (01) ==
LOC: EC 11:22
DX: K29.70 Gastritis, unspecified, without bleeding (principal); K21.9 Gastro-esophageal reflux disease without esophagitis; M19.90 Unspecified osteoarthritis, unspecified site; F41.9 Anxiety disorder, unspecified; Z87.891 Personal history of nicotine dependence; Z86.73 Personal history of transient ischemic attack (TIA), and cerebral infarction without residual deficits
CPT/HCPCS: 36415; 80053; 82150; 83605; 83690; 85025; 85610; 85730; 81001; 74177; 99284; 96374; C9113; Q9967

== ENCOUNTER → 2022-07-09 | Outpatient (CLI) | payer OTHER ==
--- NOTE | 2022-07-10 06:55 | US ---
EXAMINATION TYPE: US kidneys/renal and bladder DATE OF EXAM: 07/09/2022 COMPARISON: NONE CLINICAL HISTORY: N28.1 Cyst of kidney, R42 Dizziness, I65.22 Occlus. EXAM MEASUREMENTS: Right Kidney: 9.1 x 3.8 x 4.1 cm Left Kidney: 10.2 x 4.3 x 4.3 cm Right Kidney: inferior cyst measuring 1.0 x 0.9 x 0.9cm, mid inferior cyst with posterior echogenic a casey possible calcified wall, cyst measures 0.9 x0.7 x 0.6cm Left Kidney: cyst measuring 1.5 x 1.6 x 1.7cm Bladder: wnl There is no evidence for hydronephrosis at this point in time. No nephrolithiasis is seen. No Solid masses are identified. The urinary bladder is anechoic. Bilateral ureteral jets are seen. IMPRESSION: Bilateral renal cysts.
--- NOTE | 2022-07-10 06:56 | US ---
EXAMINATION TYPE: US carotid duplex BILAT DATE OF EXAM: 07/09/2022 COMPARISON: dizziness CLINICAL HISTORY: N28.1 Cyst of kidney, R42 Dizziness, I65.22 Occlus. TECHNIQUE: Carotid duplex ultrasound examination. Indirect Doppler criteria was utilized. FINDINGS: EXAM MEASUREMENTS: RIGHT: Peak Systolic Velocity (PSV) cm/sec ----- Right CCA: 79.8 ----- Right ICA: 107.9 ----- Right ECA: 139.8 ICA/CCA ratio: 1.4 RIGHT: End Diastole cm/sec ----- Right CCA: 31.4 ----- Right ICA: 43.1 ----- Right ECA: 33.3 LEFT: Peak Systolic Velocity (PSV) cm/sec ----- Left CCA: 79.0 ----- Left ICA: 87.5 ----- Left ECA: 114.5 ICA/CCA ratio: 1.1 LEFT: End Diastole cm/sec ----- Left CCA: 26.7 ----- Left ICA: 32.5 ----- Left ECA: 14.4 VERTEBRALS (direction of flow): Right Vertebral: Antegrade Left Vertebral: Antegrade Rhythm: Normal DIRECTOR DIVERSITY NOTES: Moderate atherosclerotic changes without significant velocity increases. IMPRESSION: No evidence for hemodynamically significant stenosis at this time. Criteria for Assigning % of Stenosis / Diameter reduction (Estimation based on the indirect measurements of the internal carotid artery velocities (ICA PSV). 1. Normal (no stenosis)=ICA PSV < 125 cm/s: ratio < 2.0: ICA EDV<40 cm/s. 2. Less than 50% stenosis=ICA PSV < 125 cm/s: ratio < 2.0: ICA EDV<40 cm/s. 3. 50 to 69% stenosis=ICA PSV of 125 to 230 cm/s: ration 2.0 ? 4.0: ICA EDV 40-100 cm/s. 4. Greater than 70% stenosis to near occlusion= ICA PSV > 230 cm/s: ratio > 4.0: ICA EDV > 100 cm/s. 5. Near occlusion= ICA PSV velocities may be low or undetectable: variable ratio and ICA EDV. 6. Total occlusion=unable to detect flow.
== END | disposition home or self-care (01) ==
LOC: RADUSWWP 15:46
PROVIDERS: ATTEND Family Medicine
DX: N28.1 Cyst of kidney, acquired (principal); R42 Dizziness and giddiness
CPT/HCPCS: 76770; 93880

== ENCOUNTER → 2022-11-04 | Outpatient (CLI) | payer OTHER ==
--- NOTE | 2022-11-04 13:10 | US ---
EXAMINATION TYPE: US thyroid st tissue head/neck DATE OF EXAM: 11/04/2022 COMPARISON: None EXAMINATION TYPE: US thyroid st tissue head/neck CLINICAL HISTORY: E04.1 single thyroid nodule. Bilateral lumps on neck. TECHNIQUE: Multiple grayscale and color ultrasound images of the bilateral neck posteriorly were obt ained and patient's region of abnormality. FINDINGS/Impression: Multiple hypoechoic ovoid lesions with central fatty hilum seen in the posterior neck in the patient' s region of palpable abnormality. The largest measures .8 x .4 x .5 cm in the left posterior neck pos terior to the ear. These are most consistent with benign-appearing lymph nodes, likely reactive.
== END | disposition home or self-care (01) ==
LOC: RADUSWWP 12:24
PROVIDERS: ATTEND Family Medicine
DX: E04.1 Nontoxic single thyroid nodule (principal)
CPT/HCPCS: 76536

== ENCOUNTER 2023-05-03 09:50 | Emergency (ER) | payer OTHER ==
[2023-05-03 10:06] VITALS: RESP 18; TEMP 97.9
[2023-05-03] MEDS ORDERED: ACET/COD 300 MG/30 MG STARTER PACK 6 TAB BTL PO STA (10:43)
--- NOTE | 2023-05-03 11:16 | ED ---
General Adult HPI - General Chief complaint: Recheck/Abnormal Lab/Rx Stated complaint: Med Refill for [place] for pain Time Seen by Provider: 05/03/23 10:14 Source: patient Mode of arrival: ambulatory Limitations: no limitations - History of Present Illness Initial comments: Patient is a 62-year-old female who presents emergency department for medication refill. States she has not been able to get ahold of her primary care provider Dr. Mcmillan [place] refilled. She takes it chronic neck and shoulder pain. States she feels nauseous due to pain. No other concerns at this time. - Related Data Home Medications Medication Instructions Recorded Confirmed Amitriptyline HCl 150 mg PO HS 03/26/17 06/20/21 Butalb/APAP/Caff 50-325-40Mg 1 tab PO Q6HR PRN 03/26/17 06/20/21 [Fioricet 50-325-40] Hydrocodone/Acetaminophen [[place] 1 tab PO QID PRN 03/26/17 06/20/21 10-325] Cyanocobalamin (Vitamin B-12) 1,000 mcg PO DAILY 06/20/21 06/20/21 [Vitamin B-12] Ergocalciferol (Vitamin D2) 1,250 mcg PO Q28D 06/20/21 06/20/21 [Drisdol (50,000 Iu)] Lansoprazole [Prevacid] 15 mg PO DAILY 06/20/21 06/20/21 Magnesium Oxide [Kamara] 500 mg PO DAILY 06/20/21 06/20/21 Ondansetron [Zofran] 4 mg PO Q12HR PRN 06/20/21 06/20/21 Propranolol HCl [Propranolol HCl 60 mg PO HS 06/20/21 06/20/21 ER] busPIRone HCL [Buspar] 7.5 mg PO BID 06/20/21 06/20/21 hydroCHLOROthiazide 25 mg PO DAILY 06/20/21 06/20/21 Previous Rx's Medication Instructions Recorded Pantoprazole [Protonix] 40 mg PO DAILY #14 tab 06/20/21 Sucralfate [Carafate] 1 gm PO BID #30 tablet 06/20/21 Prochlorperazine [Compazine] 5 mg PO Q8HR PRN #9 tab 05/03/23 Allergies Allergy/AdvReac Type Severity Reaction Status Date / Time adhesive Allergy Unknown Red Verified 05/03/23 10:06 Irritated Skin. gabapentin Allergy Unknown Itching, Verified 05/03/23 10:06 Rash ondansetron [From Zofran] Allergy Unknown Itching, Verified 05/03/23 10:06 Swelling, Did not feel well morphine AdvReac Nausea & Verified 05/03/23 10:06 Vomiting Review of Systems ROS Statement: Those systems with pertinent positive or pertinent negative responses have been documented in the HPI. ROS Other: All systems not noted in ROS Statement are negative. Past Medical History Past Medical History: CVA/TIA, GERD/Reflux, Osteoarthritis (OA) Additional Past Medical History / Comment(s): STATES MRI SHOWED HX OF TIA X3., HX OF MIGRAINES., HERNIATED AND BULGING DISCS WITH LOWER BACK PAIN RADIATING DO WN RIGHT LEG TO FOOT History of Any Multi-Drug Resistant Organisms: None Reported Past Surgical History: Hysterectomy, Orthopedic Surgery, Tubal Ligation Additional Past Surgical History / Comment(s): 2 CERVICAL FUSIONS, STATES 2 PLATES & 8 SCREWS IN HER NECK, LEFT SHOULDER SURGERY X7 WITH ANCHORS. EGD, COLONOSCOPY Past Anesthesia/Blood Transfusion Reactions: Motion Sickness, Postoperative Nausea & Vomiting (PONV) Past Psychological History: Anxiety Smoking Status: Former smoker Past Alcohol Use History: None Reported Past Drug Use History: None Reported - Past Family History Mother Family Medical History: Cancer Additional Family Medical History / Comment(s): LUNG CANCER (PASSED AT 55 YRS OF AGE) Father Family Medical History: Cancer Additional Family Medical History / Comment(s): BRAIN CANCER (PASSED AT 38 YRS OF AGE) Brother(s) Family Medical History: Cancer Additional Family Medical History / Comment(s): BRAIN CANCER (PASSED AT 44 YRS OF AGE) General Exam Limitations: no limitations General appearance: anxious Respiratory exam: Present: normal lung sounds bilaterally. Absent: respiratory distress, wheezes, rales, rhonchi, stridor Cardiovascular Exam: Present: regular rate, normal rhythm, normal heart sounds. Absent: systolic murmur, diastolic murmur, rubs, gallop, clicks Neurological exam: Present: alert, oriented X3, CN II-XII intact Psychiatric exam: Present: anxious Skin exam: Present: warm, dry, intact, normal color. Absent: rash Course Vital Signs 05/03/23 05/03/23 10:01 11:24 Temperature 97.9 F Pulse Rate 78 77 Respiratory 18 18 Rate Blood Pressure 134/98 137/79 O2 Sat by Pulse 100 99 Oximetry Medical Decision Making - Medical Decision Making Was pt. sent in by a medical professional or institution (FÁTIMA Nagy, POWER NUT RUNNER OPERATOR, urgent care, hospital, or skilled nursing...) When possible be specific @ -No Did you speak to anyone other than the patient for history (EMS, parent, family, police, friend...)? What history was obtained from this source @ -No Did you review nursing and triage notes (agree or disagree)? Why? @ -I reviewed and agree with nursing and triage notes Were old charts reviewed (outside hosp., previous admission, EMS record, old EKG, old radiological studies, urgent care reports/EKG's, skilled nursing records)? Report findings @ -No old charts were reviewed Differential Diagnosis (chest pain, altered mental status, abdominal pain women, abdominal pain men, vaginal bleeding, weakness, fever, dyspnea, syncope, headache, dizziness, GI bleed, back pain, seizure, CVA, palpatations, mental health)? @ -not applicable EKG interpreted by me (3pts min.). @ -As above X-rays interpreted by me (1pt min.). @ -None done CT interpreted by me (1pt min.). @ -None done U/S interpreted by me (1pt. min.). @ -None done What testing was considered but not performed or refused? (CT, X-rays, U/S, labs)? Why? @ -None What meds were considered but not given or refused? Why? @ -None Did you discuss the management of the patient with other professionals (professionals i.e. FÁTIMA Nagy, POWER NUT RUNNER OPERATOR, lab, RT, psych nurse, group social worker, public relations officer, te acher, loan service officer, case repairer)? Give summary @ -No Was smoking cessation discussed for >3mins.? @ -No Was critical care preformed (if so, how long)? @ -No Were there social determinants of health that impacted care today? How? (Homelessness, low income, unemployed, alcoholism, drug addiction, transportation, low edu. Level, literacy, decrease access to med. care, [facility], rehab)? @ -No Was there de-escalation of care discussed even if they declined (Discuss DNR or withdrawal of care, Hospice)? DNR status @ -No What co-morbidities impacted this encounter? (DM, HTN, Smoking, COPD, CAD, Cancer, CVA, ARF, Chemo, Hep., AIDS, mental health diagnosis, sleep apnea, morbid obesity)? @ -None Was patient admitted / discharged? Hospital course, mention meds given and rou te, prescriptions, significant lab abnormalities, going to OR and other pertinent info. @ -Patient informed as an acute care provider I cannot provide [place] prescription. She was given a Tylenol 3 starter pack. Needs to follow-up with Dr. Mcmillan Undiagnosed new problem with uncertain prognosis? @ -No Drug Therapy requiring intensive monitoring for toxicity (Heparin, Nitro, Insulin, Cardizem)? @ -No Were any procedures done? @ -No Diagnosis/symptom? @ -Encounter for medication refill Acute, or Chronic, or Acute on Chronic? @ -Acute Uncomplicated (without systemic symptoms) or Complicated (systemic symptoms)? @ -Uncomplicated Side effects of treatment? @ -No Exacerbation, Progression, or Severe Exacerbation? @ -No Poses a threat to life or bodily function? How? (Chest pain, [place], [place], pneumonia, PE, COPD, DKA, ARF, appy, cholecystitis, CVA, Diverticulitis, Homicidal, Suicidal, threat to staff... and all critical care pts) @ -No Dr. Downey is my attending Disposition Clinical Impression: Encounter for medication refill Disposition: HOME SELF-CARE Condition: Good Instructions (If sedation given, give patient instructions): Opioid Withdrawal (ED) Additional Instructions: Take medication as directed. Please follow-up with your primary care provider in 1-2 days. Return to the emergency department if you experience new, concerning, or worsening symptoms. Prescriptions: Prochlorperazine [Compazine] 5 mg PO Q8HR PRN #9 tab PRN Reason: Nausea Is patient prescribed a controlled substance at d/c from ED?: No Referrals: Kiersten Mcmillan III, MD [Primary Care Provider] - 1-2 days
[2023-05-03 11:25] VITALS: BP 137/79; PULSE 77
== END 2023-05-03 11:25 | disposition home or self-care (01) ==
LOC: EC 09:50
DX: Z76.0 Encounter for issue of repeat prescription (principal); F41.9 Anxiety disorder, unspecified; K21.9 Gastro-esophageal reflux disease without esophagitis; Z87.891 Personal history of nicotine dependence; Z79.899 Other long term (current) drug therapy; Z88.5 Allergy status to narcotic agent; Z88.8 Allergy status to other drugs, medicaments and biological substances; Z91.09 Other allergy status, other than to drugs and biological substances
CPT/HCPCS: 99282